=== PATIENT | male | born 1975 | race Caucasian/White ===

== ENCOUNTER 2018-01-07 03:23 | Emergency (ER) | payer OTHER ==
[~2018-01-07] VITALS: Ht 175.3 cm; Wt 76.2 kg
[2018-01-07 03:39] VITALS: BP 125/83
--- NOTE | 2018-01-07 04:04 | ED THROAT/DENTAL COMPLAINT ---
History of Present Illness General Chief Complaint: General Adult Stated Complaint: LUMP ON JAWLINE Source: patient, old records Exam Limitations: no limitations Vital Signs & Intake/Output Vital Signs & Intake/Output Vital Signs Date Time Temp Pulse Resp B/P B/P Pulse O2 O2 Flow FiO2 Mean Ox Delivery Rate 01/07 0400 Room Air 01/07 0339 98.0 103 18 125/83 97 Room Air Allergies Coded Allergies: No Known Allergies (01/07/18) Reconcile Medications Amoxicillin 500 MG TABLET 1 TAB PO TID dental abscess Triage Note: PT TO TRIAGE C/O ?LUMP TO L SIDE OF JAW THAT FIRST NOTICED THIS MORNING AND REPORTS FEELS IT IS GETTING BIGGER. PT REPORTS DENTAL PAIN HOWEVER STATES "I ALWAYS HAVE DENTAL PAIN." Triage Nurses Notes Reviewed? yes Onset: Just prior to arrival Duration: constant Timing: recent history Injury Environment: home Severity: mild No Modifying Factors: none HPI: Prior to admission patient noted a lump to the left side of his jaw with chronic poor dentition. He denies fever chills nausea vomiting diarrhea abdominal pain chest pain shortness breath headache dysuria rash bleeding. Past History Travel History Traveled to [place] past 21 day No Medical History Any Pertinent Medical History? 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 No Review of Systems Review of Systems Constitutional: Reports: no symptoms. EENTM: Reports: see HPI, tooth pain. Respiratory: Reports: no symptoms. Cardiovascular: Reports: no symptoms. GI: Reports: no symptoms. Genitourinary: Reports: no symptoms. Musculoskeletal: Reports: no symptoms. Skin: Reports: no symptoms. Neurological/Psychological: Reports: no symptoms. Hematologic/Endocrine: Reports: no symptoms. Immunologic/Allergic: Reports: no symptoms. All Other Systems: Reviewed and Negative Physical Exam Physical Exam General Appearance: well developed/nourished, alert, awake, anxious, mild distress Head: atraumatic, swelling (left lateral mandible) Eyes: Bilateral: normal appearance, PERRL, EOMI. Ears: Bilateral: canal normal, Tympanic normal. Nose: normal inspection Mouth/Throat: pharynx normal, dental tenderness, mandibular swelling Neck: normal inspection, supple, full range of motion, trachea midline, lymphadenopathy (R), lymphadenopathy (L) Cardiovascular/Respiratory: normal breath sounds, normal peripheral pulses, regular rate/rhythm, no respiratory distress Back: normal inspection, normal range of motion Neurologic/Psych: no motor/sensory deficits, awake, alert, oriented x 3, normal gait, normal mood/affect, almond paste mixer II-XII nml as tested Skin: intact, normal color, warm/dry Core Measures ACS in differential dx? No Sepsis Present: No Sepsis Focused Exam Completed? No Progress Differential Diagnosis: carious tooth, odontogenic abscess, stomatitis/ gingivitis Plan of Care: Current Medications Sig/Katy Start time Last Medication Dose Stop Time Status Admin Amoxicillin 750 MG ONCE ONE 01/07 415 UNVr (Amoxil) 01/08 416 Departure Departure Time of Disposition: 401 Disposition: HOME OR SELF CARE Condition: Stable Clinical Impression Primary Impression: Dental abscess Departure Forms: Customer Survey General Discharge Information Prescriptions: Current Visit Scripts Amoxicillin 1 TAB PO TID #30 TAB
[2018-01-07] MEDS ORDERED: AMOXICILLIN500 M3 PO (04:09)
== END 2018-01-07 04:16 ==
LOC: ERH 03:23
DX: K04.7 Periapical abscess without sinus (principal)

== ENCOUNTER 2018-03-27 17:37 | Emergency (ER) | payer SELFPAY ==
[~2018-03-27] VITALS: Ht 177.8 cm; Wt 75.8 kg
[~2018-03-27 17:37] MED LIST: AMOXICILLIN500 M3 PO
[2018-03-27 18:02] VITALS: BP 135/93
[2018-03-27] MEDS ORDERED: CLEOCIN HCL300 M1 PO (19:08)
[2018-03-27] MEDS ORDERED: PERCOCET 5-3251 EACH PO (19:08)
--- NOTE | 2018-03-27 19:09 | ED THROAT/DENTAL COMPLAINT ---
History of Present Illness General Chief Complaint: Sore Throat, Dental Pain Stated Complaint: INFECTION GUM/FACE Source: patient Exam Limitations: no limitations Vital Signs & Intake/Output Vital Signs & Intake/Output Vital Signs Date Time Temp Pulse Resp B/P B/P Pulse O2 O2 Flow FiO2 Mean Ox Delivery Rate 03/27 1823 Room Air 03/27 1802 98.8 88 18 135/93 98 Room Air ED Intake and Output 03/28 0000 03/27 1200 Intake Total Output Total Balance Patient 167 lb Weight Allergies Coded Allergies: No Known Allergies (01/07/18) Reconcile Medications Amoxicillin 500 MG TABLET 1 TAB PO TID dental abscess Clindamycin HCl (Cleocin HCl) 300 MG CAPSULE 1 CAP PO TID dental infection Oxycodone HCl/Acetaminophen (Percocet 5-325 MG Tablet) 5 MG-325 MG TABLET 1 TAB PO BID PRN pain Triage Note: 42M REPORTS "I HAVE TERRIBLE TEETH THEY'RE ALL CHIPPED AND CRACKED AND ALWAYS HURTING." PAIN WORSENED YESTERDAY, PRIMARILY TO LEFT SIDE UPPER AND LOWER. DOES NOT HAVE A DENTIST. REPORTS LYMPH NODE SWELLING TO LEFT SUBMANDIBULAR AREA Triage Nurses Notes Reviewed? yes Onset: Gradual Duration: day(s): Timing: recent history Injury Environment: home Severity: moderate HPI: 42-year-old male presents emergency department complaining of pain to right lower teeth beginning yesterday. Patient states he is worried about swelling in the area and near his neck. Patient states that he has "terrible teeth" at baseline. He has not seen a dentist for a while her believes he'll be able to get into see one pretty soon. He denies fevers, chills, dysphagia, abdominal pain, vomiting, recent dental injury. (Bri Lozano) Past History Travel History Traveled to [place] past 21 day No Medical History Any Pertinent Medical History? 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 No (Bri Lozano) Review of Systems Review of Systems Constitutional: Reports: no symptoms. EENTM: Reports: see HPI. Respiratory: Reports: no symptoms. Cardiovascular: Reports: no symptoms. GI: Reports: no symptoms. Genitourinary: Reports: no symptoms. Musculoskeletal: Reports: no symptoms. Skin: Reports: no symptoms. Neurological/Psychological: Reports: no symptoms. Hematologic/Endocrine: Reports: no symptoms. Immunologic/Allergic: Reports: no symptoms. All Other Systems: Reviewed and Negative (Bri Lozano) Physical Exam Physical Exam General Appearance: well developed/nourished, no apparent distress, alert, awake Head: atraumatic, normal appearance Eyes: Bilateral: normal appearance. Nose: normal inspection Mouth/Throat: normal mouth inspection, pharynx normal, left anterior cervical lymphadenopathy with mild tenderness, no trismus, no evidence of induration to submandibular /mandibular region Neck: normal inspection, supple, full range of motion, lymphadenopathy (L) Cardiovascular/Respiratory: normal breath sounds, regular rate/rhythm, no respiratory distress Back: normal inspection, normal range of motion Neurologic/Psych: awake, alert, oriented x 3 Skin: intact, normal color, warm/dry Core Measures ACS in differential dx? No Sepsis Present: No Sepsis Focused Exam Completed? No (Bri Lozano) Progress Differential Diagnosis: carious tooth, epiglottitis, Ludwigs angina, odontogenic abscess, briana-tonsillar abscess, stomatitis/gingivitis Plan of Care: There is no evidence of Ghulam angina on physical exam. Face and gingiva palpated without evidence of fluctuance to indicate acute abscess. There is mild edema and unilateral lymphadenopathy, we will initiate antibiotics and pain medication and have patient follow-up with dentist. Patient agrees with the plan of care. He is in no acute distress, nontoxic appearing, afebrile, vital signs stable. Patient agrees with this plan. He is offered CT imaging to assess for deeper infection however he declines. The patient appears well, showed decision-making was used. He will return with worsening symptoms or concerns. (Bri Lozano) Departure Departure Disposition: HOME OR SELF CARE Condition: Stable Clinical Impression Primary Impression: Pain, dental Secondary Impressions: Lymphadenopathy Referrals: Patient Has No Primary Care Dr (PCP/Family) Additional Instructions: Take Percocet as prescribed for pain. Begin clindamycin for possible infection. Follow-up with dentist as soon as possible. Return with worsening symptoms or concerns. Please note that there might be incidental findings in your evaluation that are unrelated to the current emergency department visit. Please notify your primary care doctor about this emergency department visit in order to obtain and review all of the testing performed so that these incidental findings can be monitored as needed. If you had an x-ray performed, please understand that some fractures may not be seen on the initial set of x-rays. If your symptoms persist you might need a repeat set of x-rays to check for such a fracture. If you had a laceration evaluated, please understand that foreign bodies such as glass or wood may not be visible to the naked eye or on plain x-rays. If the wound becomes red, swollen, increasingly more painful or if there is any drainage from the wound, please have it reevaluated by a physician for the possibility of a retained foreign body. If you're unable to follow up as outlined in the discharge instructions please return to the emergency department. Thank you for choosing the [facility] Emergency Department for your care. It was a pleasure to serve you today. Departure Forms: Customer Survey General Discharge Information Prescriptions: Current Visit Scripts Oxycodone HCl/Acetaminophen (Percocet 5-325 MG Tablet) 1 TAB PO BID PRN pain #10 TAB Clindamycin HCl (Cleocin HCl) 1 CAP PO TID #30 CAP (Nury OZUNA,Bri Sabillon) PA/RESEARCH AND DEVELOPMENT TECHNICIAN Co-Sign Statement Statement: ED Attending supervision documentation- [] I saw and evaluated the patient. I have also reviewed all the pertinent lab results and diagnostic results. I agree with the findings and the plan of care as documented in the PA's/RESEARCH AND DEVELOPMENT TECHNICIAN's documentation. [x] I have reviewed the ED Record and agree with the PA's/RESEARCH AND DEVELOPMENT TECHNICIAN's documentation. [] Additions or exceptions (if any) to the PAs/RESEARCH AND DEVELOPMENT TECHNICIAN's note and plan are summarized below: [] (Luis Enrique UMANA,Timothy Camejo)
== END 2018-03-27 19:16 ==
LOC: ERH 17:37
DX: K08.89 Other specified disorders of teeth and supporting structures (principal); R59.1 Generalized enlarged lymph nodes